=== PATIENT | female | born 1995 ===

== ENCOUNTER → 2020-06-23 | Outpatient (CLI) | payer MEDICAID | LOC: CARD 15:00 | PROVIDERS: ATTEND Nurse Practitioner Family | DX: I49.3 Ventricular premature depolarization (principal) ==

== ENCOUNTER → 2021-01-30 | Outpatient (CLI) | payer MEDICAID ==
[2021-01-30 10:33] VITALS: BP 113/71
--- NOTE | 2021-01-30 10:49 | Cardiology Stress Test Report ---
Stress Test Report Date of Procedure/Referring: Date of Procedure: January 30, 2021 PCP Lisa Landeros Admitting Physician No,Local Physician Indications: CP Baseline Heart Rate: 79 Baseline Blood Pressure: Blood Pressure Systolic: 113 Blood Pressure Diastolic: 71 Baseline EKG: Baseline EKG: NSR Summary/Conclusion: Summary: In summary, the patient started exercising with a baseline heart rate, blood pressure and EKG mentioned above Patient was able to exercise for a total of 9minutes on Juan protocol, METs 10.5 Maximum heart rate 175 Maximum blood pressure 152/46 Stress EKG, Minimal nondiagnostic changes Recovery EKG , Return to baseline Conclusion: 1. Good exercise tolerance for a total of 9 minutes on Juan protocol, 10.5 METs, achieving 90 percent of maximum expected heart rate 2. Minimal nondiagnostic EKG changes with exercise returned to baseline during recovery 3. No arrhythmia was noted MICHAEL BAHENA MD January 30, 2021 10:49
== END ==
LOC: CARD 10:30
PROVIDERS: ATTEND Physician Assistant
DX: R07.9 Chest pain, unspecified (principal)
CPT/HCPCS: 93017

== ENCOUNTER 2021-06-29 09:35 | Outpatient (CLI) | payer MEDICAID ==
[~2021-06-29] VITALS: Ht 155 cm; Wt 74.0 kg
[2021-06-29 09:40] VITALS: BP 125/82
[2021-06-29] MEDS ORDERED: EPINEPHrine INJECTION 1 MG/ML AMP IM PRN (09:45)
[2021-06-29] MEDS ORDERED: ACETAMINOPHEN 500 MG TAB (TYLENOL) PO PRN (09:45)
[2021-06-29] MEDS ORDERED: ONDANSETRON 4 MG/2 ML (SDV) Z0FRAN IV PRN (09:45)
[2021-06-29] MEDS ORDERED: diphenhydrAMINE 50 MG/ML INJ (BENADRYL) IV PRN (09:45)
[2021-06-29] MEDS ORDERED: CASIRIVIMAB/IMDEVIMAB 1,200 MG in NS (IVPB) 250 ML IV ONE (09:45)
[2021-06-29 11:14] VITALS: BP 111/72
== END 2021-06-29 11:15 | disposition home or self-care (01) ==
LOC: INFUSION 09:35
PROVIDERS: ATTEND Nurse Practitioner Family
DX: U07.1 COVID-19 (principal)

== ENCOUNTER 2022-07-25 05:33 | Outpatient (CLI) | payer MEDICAID ==
[~2022-07-25] VITALS: Ht 154.9 cm; Wt 78.5 kg
[2022-07-26] MEDS ORDERED: FLUT9.9S NS (13:18)
[2022-07-26] MEDS ORDERED: ASCO100024 PO (13:18)
--- NOTE | 2022-07-31 13:56 | Progress Note-Pre Operative ---
Pre-Operative Progress Note Date of Available H&P: Aug 01, 2022 Date H&P Reviewed: Aug 01, 2022 History & Physical: H&P Reviewed, No changes noted Pre-Operative Diagnosis: Menorrhagia/uterine fibroids/chronic pelvic pain TREY ARROYO MD Jul 31, 2022 13:56
--- NOTE | 2022-07-31 13:57 | Progress Note-Post Operative ---
Post-Operative Progess Note Surgeon (s)/Erecting Engineer (s) Surgeon TREY ARROYO MD Pre-Operative Diagnosis Menorrhagia/uterine fibroids/chronic pelvic pain Post-Operative Diagnosis Same with pathology pending Procedure & Operative Findings Date of Procedure 07/31/22 Procedure Performed/Findings Total laparoscopic hysterectomy with bilateral salpingectomies Anesthesia Type General anesthesia Specimens/Packing Specimens Removed Uterus and fallopian tubes TREY ARROYO MD Jul 31, 2022 13:56
[2022-08-01] MEDS ORDERED: IBUP-1780 PO (13:57)
[2022-08-01] MEDS ORDERED: DOCU-143 PO (13:57)
[2022-08-01] MEDS ORDERED: OXYC-199 PO (13:57)
== END 2022-07-26 13:22 | disposition home or self-care (01) ==
LOC: PREOP 05:33
PROVIDERS: ATTEND Obstetrics & Gynecology
DX: Z01.818 Encounter for other preprocedural examination (principal)

== ENCOUNTER 2022-08-01 11:36 | Day surgery (SDC) | payer MEDICAID ==
[2022-08-01] VITALS (12 sets, daily range): BP systolic 102–115; BP diastolic 56–76
[~2022-08-01] VITALS: Ht 154.9 cm; Wt 78.5 kg
[~2022-08-01 11:36] MED LIST: ASCO100024 PO; FLUT9.9S NS
[2022-08-01] MEDS ORDERED: ceFAZolin INJECTION 1,000 MG in NS (IVPB) 50 ML IV ONE (12:00)
[2022-08-01] MEDS: LACTATED RINGERS 1,000 ML IV PRN ×2 (12:17→14:33)
[2022-08-01] MEDS ORDERED: LIDOCAINE/EPI 1%-1:100,000 (XYLOCAINE) 10 ML ONE (12:18)
[2022-08-01] MEDS ORDERED: fentaNYL INJ 100 MCG/2 ML AMP ONE (13:11)
[2022-08-01] MEDS ORDERED: ROCURONIUM 10 MG/ML 5 ML SYRINGE IV ONE (13:11)
[2022-08-01] MEDS ORDERED: GLYCOPYRROLATE 0.2 MG/ML (ROBINUL) 2 ML VIAL ONE (13:11)
[2022-08-01] MEDS ORDERED: proPOfol 200 MG/20 ML (DIPRIVAN) VIAL IV ONE (13:11)
[2022-08-01] MEDS ORDERED: LIDOCAINE PF 2% 5 ML (XYLOCAINE) VIAL ONE (13:11)
[2022-08-01] MEDS ORDERED: ONDANSETRON 4 MG/2 ML (SDV) Z0FRAN ONE (13:11)
[2022-08-01] MEDS ORDERED: MIDAZOLAM 2 MG/2 ML (VERSED) VIAL ONE (13:11)
--- NOTE | 2022-08-01 13:55 | Progress Note-Post Operative ---
Post-Operative Progess Note Surgeon (s)/Hand Sole Sewer (s) Surgeon TREY ARROYO MD Hand Sole Sewer: Pauly Aguirre Pre-Operative Diagnosis Menorrhagia and uterine fibroids Post-Operative Diagnosis Same with appendiceal mass and with pathology pending Procedure & Operative Findings Date of Procedure 08/01/22 Procedure Performed/Findings Total laparoscopic hysterectomy with bilateral salpingectomies and with laparoscopic appendectomy Anesthesia Type General anesthesia Estimated Blood Loss Estimated blood loss (mL): Minimal Specimens/Packing Specimens Removed Uterus and fallopian tubes and appendix TREY ARROYO MD Aug 01, 2022 13:55
--- NOTE | 2022-08-01 13:55 | Progress Note-Pre Operative ---
Pre-Operative Progress Note Date of Available H&P: Aug 01, 2022 Date H&P Reviewed: Aug 01, 2022 Time H&P Reviewed: 13:54 History & Physical: H&P Reviewed, No changes noted Pre-Operative Diagnosis: Menorrhagia and uterine fibroids TREY ARROYO MD Aug 01, 2022 13:54
[2022-08-01] MEDS ORDERED: OXYC-199 PO (13:57)
[2022-08-01] MEDS ORDERED: IBUP-1780 PO (13:57)
[2022-08-01] MEDS ORDERED: DOCU-143 PO (13:57)
--- NOTE | 2022-08-01 13:58 | Discharge Inst-Surgical ---
Discharge Inst-Surgical Depart Medication/Instructions New, Converted or Re-Newed RX: Transmitted to Pharmacy Consults/Follow Up Patient Instructions: As directed Orders & Referrals Follow Up Appt: Return to clinic in 1 week for suture removal Call to make follow up appt. for patient in 4 weeks. Activity: Rest for 24 hours, than as tolerated. Wound Care: May remove Band-Aid tomorrow. Replace as desired. Keep incisions clean and dry. Wash daily with soap and water. Prescriptions for Percocet Motrin and Colace have been transmitted electronically to patient's pharmacy Diet: As tolerated shower or tub bathe as desired. No driving for 24 hours, no alcoholic beverages for 24 hours, and nothing per vagina (no tampons, douching, or intercourse) for 8 weeks. Patient to return to the clinic as soon as possible for: Temperature greater than 101F, Severe Pain, Foul discharge from incision or vagina, Excessive Bleeding (more than a period). Activity Activity as Tolerated: No Diet Discharge Diet: No Restrictions TREY ARROYO MD Aug 01, 2022 13:58
[2022-08-01] MEDS ORDERED: KETOROLAC 30 MG/ML VIAL ONE (15:38)
[2022-08-01] MEDS ORDERED: morphine INJ 10 MG/ML 1ML (SYR OR VIAL) ONE (15:38)
[2022-08-01] MEDS: KETOROLAC 30 MG/ML VIAL IV SCH ×2 (15:40→20:46)
[2022-08-01] MEDS ORDERED: MEPERIDINE (DEMEROL) INJ 100 MG/ML IM PRN (15:45)
[2022-08-01] MEDS ORDERED: HYDROmorphone 2 MG/ML VIAL (DILAUDID) IV ONE (15:45)
[2022-08-01] MEDS ORDERED: PROMETHAZINE INJ 25 MG/ML (PHENERGAN) AMP IM PRN (15:45)
[2022-08-01] MEDS ORDERED: morphine INJ 10 MG/ML 1ML (SYR OR VIAL) IVP ONE (15:45)
[2022-08-01] MEDS ORDERED: D5 LR IV SOLUTION 1,000 ML IV SCH (15:45)
[2022-08-01] MEDS ORDERED: ONDANSETRON 4 MG/2 ML (SDV) Z0FRAN IVP PRN ×2 (15:45)
--- NOTE | 2022-08-01 15:47 | Anesthesia-General Post-Op ---
General Patient Condition Mental Status/LOC: Same as Preop Cardiovascular: Satisfactory Nausea/Vomiting: Absent Respiratory: Satisfactory Pain: Controlled Complications: Absent Post Op Complications Complications None Follow Up Care/Instructions Patient Instructions None needed. Anesthesia/Patient Condition Patient Condition Patient is doing well in PACU, C/O pain which is to be expected, stable vital signs, no apparent adverse anesthesia problems. No complications reported per nursing. CASPER LACEY DO Aug 01, 2022 15:47
[2022-08-01] MEDS ORDERED: SEVOFLURANE (ULTANE) 15 ML INHAL SOLN ONE (15:49)
[2022-08-01] MEDS ORDERED: NEOSTIGMINE (BLOXIVERZ ) 1 MG/1ML 10 ML VIAL ONE (15:49)
[2022-08-01] MEDS ORDERED: oxyCODONE/APAP 5/325MG (PERCOCET 5) TABLET PO PRN (19:00)
[2022-08-02 00:35] VITALS: BP 99/58
[2022-08-02] MEDS: KETOROLAC 30 MG/ML VIAL IV SCH (03:25)
[2022-08-02 03:28] VITALS: BP 97/55
--- NOTE | 2022-08-02 04:19 | OPERATIVE REPORT ---
DATE OF SERVICE: 08/01/2022 PREOPERATIVE DIAGNOSES: Menometrorrhagia and uterine fibroids. POSTOPERATIVE DIAGNOSES: Menometrorrhagia and uterine fibroids with appendiceal mass. PROCEDURE: Total laparoscopic hysterectomy with bilateral salpingectomies as well as laparoscopic appendectomy. DESCRIPTION OF PROCEDURE: With the patient in the supine position, under satisfactory general anesthesia, she was repositioned in the dorsal lithotomy position in the [facility] and prepped and draped in the usual fashion for abdominal and vaginal surgery using the da Twin assistance. Weighted speculum was placed in the posterior fornix of the vagina, cervix exposed and grasped anteriorly with single tooth tenaculum. The uterus was sounded to 12.5 cm with the uterine sound. The cervix was then serially dilated with David dilators to accommodate a ARMANDO II manipulator was placed using a 6 x 8 cm uterine probe and a 30 mm colpotomy ring. Sutures of 1 Vicryl were placed at 3 and 9 o'clock position of the cervix to affix the uterus to the manipulator. The tenaculum and speculum were removed. Cardenas catheter was placed in the urinary bladder and patient was brought in low dorsal lithotomy position. A 12 mm incision was made 10 cm superior to the umbilicus. Veress needle was placed through that incision into the abdominal cavity. Correct placement confirmed with the water drop test. The abdomen was insufflated with 2.4 liters of carbon dioxide and the Veress needle was removed and a 12 mm Optiview laparoscopic port placed. Abdominal wall was transilluminated and ports of 8 mm were placed through incisions of those 8 cm lateral to the umbilicus and about 3 cm superior to the umbilicus. The patient was now placed in Trendelenburg allowing the bowel was pulled up out of the pelvis. The da Twin column was advanced on the patient, docked to the operative instruments were placed in right and left lateral ports and I retired to the da Twin console. At the console using the vessel sealer on the right and the bipolar fenestrated grasper on the left, the pelvis was first examined. The uterus was large bulky multilobular consistent with uterine fibroids and/or adenomyosis. Both fallopian tubes were normal in appearance as were the ovaries. There appeared to be endometriosis on the posterior lower uterine segment of the uterus. The laparoscope was rotated. The appendix was identified. It was a vermiform appendix that was quite injected along its length. The distal tip was engorged and swollen consistent with some sort of intraluminal mass. Decision was made to go ahead with appendectomy concurrent with the other procedures being performed. Attention was turned back to the uterus. The right fallopian tube was grasped and elevated and then using the vessel sealer, the mesosalpinx was clamped, cauterized, and divided across to the utero-ovarian pedicle, which was clamped, cauterized, and divided also with the vessel sealer. The dissection was then carried down across the broad ligament and onto the cardinal ligament. The same procedure was performed on the left. Eventually was brought out, allowing for removal of both fallopian tubes and conservation of both ovaries. The anterior lower uterine segment, the peritoneum was now divided. The bladder carefully dissected down off the lower uterine segment and then a colpotomy incision started at the 12 o'clock position on to the colpotomy ring. With that incision initiated it was completed circumferentially around the cervix exposing the colpotomy ring entirely. This allowed the uterus to be freed and extracted through the vagina with the tubes still attached. The vaginal cuff was now closed with a single suture V-Loc barbed suture starting from the right angle continuing all the way across the cuff to the left angle and including the uterine vessel pedicles with the closure. Both ureters were seen to peristalse before, during and after all of the dissection and the procedure that was seen to peristalse again at this point and were normal in caliber. Attention was now turned back to the appendix. It was grasped with elevated. The mesoappendix was clamped, cauterized, and divided with the vessel sealer across to the base of the appendix, and the laparoscopic portion of the procedure using the da Twin was halted at this point. The operative instruments were removed under direct vision and now using the scope in the right lateral port, a stapler in the medial port and a grasper in the left lateral port, the appendix was grasped and elevated. Endo-NITESH was placed across the base of the appendix and fired, the organ from its attachments. The appendix was brought out through the umbilical port using an Endobag. The stump of the appendix was copiously irrigated and treated with several drops of Betadine solution. With that done, the laparoscopic portion of the procedure was complete. The operative instruments were removed under direct vision as were the ports. The abdomen was evacuated of the insufflated gas in the process of removing the ports. The skin incisions were closed with nylon sutures. After closing the fascia at the supraumbilical incision with a acniio-fl-zlzjy suture of 2-0 Vicryl. Speculum was replaced in the vagina and the vaginal cuff was examined. It was completely intact and completely hemostatic. Sponge and needle counts were correct, and hemostasis was assured now. The procedure was terminated. The operative instruments had been accounted for, as were the sponge, needles. Blood loss was minimal. The patient was uneventfully awakened from her general anesthesia and transferred to the recovery room in stable condition. Job ID: [id number] DocumentID: [id number] Dictated Date: 08/01/2022 17:14:44 Band Top Maker Date: 08/02/2022 04:17:00 Dictated By: TREY ARROYO MD
[2022-08-02] MEDS ORDERED: IBUPROFEN 800 MG (MOTRIN) TAB PO ONE (07:57)
--- NOTE | 2022-08-02 07:58 | Progress Note ---
Standard Progress Note Progress Notes/Assess & Plan Date Seen by a Provider: Aug 02, 2022 Time Seen by a Provider: 07:56 Progress/Assessment & Plan This patient is without complaint. She is ambulating, tolerating oral intake and has good pain control. Her Cardenas catheter was removed within the last hour and a half she has not voided yet. Patient reports good pain control but has some pins and needle type pain around the left abdominal incision. She reports that that pain is well controlled with pain medication as well however Vital Signs Date Time Temp Pulse Resp B/P (MAP) Pulse Ox O2 Delivery O2 Flow Rate FiO2 08/02/22 03:28 36.6 68 18 97/55 (69) 97 Room Air 08/02/22 00:35 37.1 95 18 99/58 (72) 96 Room Air 08/01/22 19:36 37.0 107 18 106/61 (76) 96 Room Air 08/01/22 18:56 Room Air 08/01/22 18:50 105 16 97 Room Air 08/01/22 18:20 37.2 101 16 114/56 (75) 99 Room Air 08/01/22 17:05 37.1 87 16 115/68 (84) 99 Room Air 08/01/22 16:35 36.7 88 16 113/69 (84) 100 Room Air 08/01/22 16:20 Room Air 08/01/22 16:15 36.8 12 113/71 (85) 100 Room Air 08/01/22 16:10 12 112/71 (85) 100 OxyMask 3.00 08/01/22 16:10 OxyMask 3.00 08/01/22 16:00 12 106/68 (81) 100 OxyMask 3.00 08/01/22 15:55 OxyMask 8 08/01/22 15:50 12 102/73 (83) 100 OxyMask 5.00 08/01/22 15:40 OxyMask 8 08/01/22 15:40 12 108/64 (79) 100 OxyMask 8 08/01/22 15:30 16 109/67 (81) 100 OxyMask 8 08/01/22 15:26 36.2 16 103/60 (74) 100 OxyMask 8 08/01/22 15:26 OxyMask 8 08/01/22 11:45 36.7 92 18 115/76 (89) 100 Room Air I & O 08/02/22 07:00 Intake Total 2075 ml Output Total 1625 ml Balance 450 ml Vital signs are stable. Patient is afebrile. The abdomen is benign. The surgical incision dressings are clean and dry Extremities show no clubbing or cyanosis. There is no Homans' sign. Pelvic exam is deferred Assessment and plan Postoperative day #1 status post total laparoscopic hysterectomy with bilateral salpingectomies as well as laparoscopic appendectomy. Patient is doing well. Plan will be for discharge home when she is ambulating, voiding, tolerating oral intake, and has good pain control with oral medications. Final Diagnosis Menorrhagia and uterine fibroids TREY ARROYO MD Aug 02, 2022 07:58
[2022-08-02 08:05] VITALS: BP 101/54
[2022-08-02] MEDS ORDERED: IBUPROFEN 800 MG (MOTRIN) TAB PO SCH (15:45)
[2022-08-02] MEDS ORDERED: DOCUSATE SODIUM 100 MG (COLACE) CAP PO SCH (21:00)
== END 2022-08-02 12:10 | disposition home or self-care (01) ==
LOC: SDC 11:36 → WS 16:25 → SDC 08-02 12:10
PROVIDERS: ATTEND Obstetrics & Gynecology
DX: D25.1 Intramural leiomyoma of uterus (principal); N80.03 Adenomyosis of the uterus; K38.8 Other specified diseases of appendix; N94.12 Deep dyspareunia
CPT/HCPCS: 84703; 87081; 94664